=== PATIENT | female | born 1995 | race Caucasian/White ===

== ENCOUNTER 2017-04-01 11:22 | Outpatient (CLI) | payer OTHER ==
[~2017-04-01 11:22] MED LIST: ZOFRAN4 MG SL
[2017-04-01] MEDS ORDERED: KEFLEX500 MG PO (11:50)
== END 2017-04-01 12:58 | disposition home or self-care (01) ==
LOC: OBS/DEL 11:22
DX: O26.892 Other specified pregnancy related conditions, second trimester (principal); R10.2 Pelvic and perineal pain; O23.12 Infections of bladder in pregnancy, second trimester; N30.90 Cystitis, unspecified without hematuria

== ENCOUNTER → 2023-06-23 09:26 | Outpatient (CLI) | payer OTHER ==
[~2023-06-23 09:26] MED LIST changes: +KEFLEX500 MG PO
== END | disposition home or self-care (01) ==
LOC: PRENATAL 09:26
PROVIDERS: ATTEND Obstetrics & Gynecology Maternal & Fetal Medicine
DX: O35.9XX0 Maternal care for (suspected) fetal abnormality and damage, unspecified, not applicable or unspecified (principal); O44.00 Complete placenta previa NOS or without hemorrhage, unspecified trimester; O34.219 Maternal care for unspecified type scar from previous cesarean delivery; O14.90 Unspecified pre-eclampsia, unspecified trimester; Z3A.20 20 weeks gestation of pregnancy